=== PATIENT | female | born 1970 | race Caucasian/White ===

== ENCOUNTER → 2019-03-21 13:45 | Outpatient (CLI) | payer OTHER ==
[2013-07-22 07:32] VITALS: BMI 34.4
[~2019-03-21 13:45] MED LIST: ACETAMINOPHEN500 M1 PO; ASPIRIN 81 MG E81 MG PO; COZAAR50 MG PO; HYDROCHLOROTHIA25 MG PO; LORTAB 5/500 TA1 TA2 PO; MOTRIN600 MG PO
== END | disposition home or self-care (01) ==
LOC: D.HCCARDIO 13:45
PROVIDERS: ATTEND Internal Medicine Cardiovascular Disease
DX: R00.2 Palpitations (principal)